=== PATIENT | female | born 1995 | race Caucasian/White ===

== ENCOUNTER 2023-07-04 03:39 | Emergency (ER) | payer MEDICAID, SELFPAY ==
[2023-07-04 03:42] VITALS: BP 137/76; PULSE 108; RESP 32; TEMP 37.1; O2SAT 94; BMI 40.4
--- OUTSIDE RECORDS SUMMARY | 2023-07-04 04:22 | XMS RPT_ITS | CCD ---
Author Name Unknown Address [id number] [place] [address] Organization [facility] Care Team Providers Care [place] [employer] Lab[employer] Name Role Phone MORRIS ALFORD DO Admitting Unavailable MORRIS ALFORD DO Primary Care Unavailable MORRIS ALFORD DO Attending Unavailable TRUDY JOVEL CNP Consulting Unavailable PROVIDER, UNKNOWN Consulting Unavailable PROVIDER, UNKNOWN Consulting Unavailable CSERNYIKGUNNER DO Admitting Unavailable CSERNYIK, GUNNER DO Primary Care Unavailable CSERNYIKGUNNER DO Attending Unavailable TRUDY JOVEL CNP Consulting Unavailable TRUDY JOVEL CNP Referring Unavailable PROVIDER, UNKNOWN Consulting Unavailable PROVIDER, UNKNOWN Consulting Unavailable Unavailable Primary Care Provider Unavailabl e ROSA M ZELAYA Referring Unavailable JANES, JOHANNE Referring Unavailable ROSA M ZELAYA Attending Unavailable RAMYA IQBAL Referring Unavailable PLOTTS, ROSA M Attending Unavailable RAMYA IQBAL Attending Unavailable RICHAR ARIAS Attending Unavailable DANNY LEO Referring Unavailable CELINA DOTY Attending Unavailable PLOTTS, ROSA M Referring Unavailable PLOTTS, ROSA M Referring Unavailable HAURYJOHANNE Attending Unavailable Allergies Allergy Classification Reported Allergen(s) Allergy Type Date of Onset Reaction(s) Facility (1 source) Amoxicillin / Clavulanate Drug Allergy [facility] (1 source) levETIRAcetam Drug Allergy [facility] (2 sources) oxyCODONE; Translations: [OXYCODONE] Drug Allergy 02-17-2023 [facility] (1 source) Phenytoin Drug Allergy [facility] (1 source) 10/06/2018 (-) MRSA SCREEN NARES Drug allergy (disorder) [facility] (9 sources) Amoxicillin / Clavulanate; Translations: [AMOXICILLIN-POT CLAVULANATE] Drug Allergy 02-17-2023 Vomiting [facility] (9 sources) levETIRAcetam; Translations: [LEVETIRACETAM] Drug Allergy 02-17-2023 Vomiting [facility] (8 sources) oxyCODONE Drug Allergy 02-17-2023 Vomiting [facility] (9 sources) Phenytoin; Translations: [PHENYTOIN] Drug Allergy 02-17-2023 Vomiting [facility] Medications Current Medications Medication Drug Class(es) Dates Sig (Normalized) Sig (Original) multivitamin (CLASSIC ) 28 mg iron- 800 mcg tab(s) (7 sources) Start: 02-17-2023 End: 02-17-2024 take 1 tablet by mouth once daily multivitamin (CLASSIC ) 28 mg iron- 800 mcg tab(s) Indications: Encounter for supervision of normal first in first trimester Take 1 tablet by mouth once daily. 90 tablet 3 02/17/2023 02/17/2024 Active Completed/Discontinued Medications Medication Drug Class(es) Dates Sig (Normalized) Sig (Original) Albuterol (7 sources) beta2-Adrenergic Agonist albuter ol sulfate (VENTOLIN INHALATION) Problems Active Problems Problem Classification Problem Date Documented Da te Episodic/Chronic Epilepsy; convulsions (9 sources) Seizure disorder; Translations: [Epilepsy, unspecified, not intractable, without status epilepticus] Onset: 02-17-2023 02-17-2023 Chronic Immunizations and screening for infectious disease (1 source) Vaccination needed; Translations: [Encounter for immunization] 07-01-2023 Episodic Other complications of (11 sources) Obesity; Translations: [Obesity complicating , unspecified trimester] Onset: 02-17-2023 02-17-2023 Chronic Other complications of (1 source) Maternal obesity complicating , childbirth and the puerperium, antepartum; Translations: [Obesity complicating , second trimester] 07-01-2023 Chronic Other complications of (1 source) Obesity complicating , unspecified trimester; Translations: [Obesity in ] Onset: 02-17-2023 Chronic Other complications of (2 sources) High risk ; Translations: [Supervision of high risk , unspecified, second trimester] Onset: 07-01-2023 07-01-2023 Episodic Other screening for suspected conditions (not mental disorders or infectious disease) (7 sources) Patient encounter status; Translations: [Encounter for screening, unspecified] Onset: 03-17-2023 03-17-2023 Episodic Residual codes; unclassified (2 sources) Finding of menstrual bleeding; Translations: [Other specified health status] 01-25-2023 Episodic Residual codes; unclassified (1 source) Gestation period, 7 weeks; Translations: [Less than 8 weeks gestation of ] 02-09-2023 Episodic Residual codes; unclassified (1 source) Gestation period, 8 weeks; Translations: [8 weeks gestation of ] 02-17-2023 Episodic Residual codes; unclassified (1 source) Gestation period, 12 weeks; Translations: [12 weeks gestation of ] 03-17-2023 Episodic Residual codes; unclassified (1 source) Gestation period, 16 weeks; Translations: [16 weeks gestation of ] 04-14-2023 Episodic Residual codes; unclassified (1 source) Gestation period, 27 weeks; Translations: [27 weeks gestation of ] 07-01-2023 Episodic Residual codes; unclassified (1 source) 16 weeks gestation of ; Translations: [16 weeks gestation of ] Onset: 05-17-2023 Episodic Residual codes; unclassified (1 source) 21 weeks gestation of ; Translations: [21 weeks gestation of ] Onset: 05-17-2023 Episodic Unclassified (1 source) No additional problems on file Past or Other Problems Problem Classification Problem Date Documented Da te Episodic/Chronic Cancer; other and unspecified primary (9 sources) History of neoplasm of pituitary gland; Translations: [Personal history of other benign neoplasm] Onset: 02-17-2023 02-17-2023 Episodic Cancer; other and unspecified primary (1 source) Personal history of other benign neoplasm; Translations: [History of benign pituitary tumor] Onset: 02-17-2023 Episodic Other and delivery including normal (6 sources) test positive; Translations: [Encounter for test, result positive] Onset: 02-09-2023 01-25-2023 Episodic Residual codes; unclassified (9 sources) Maternal history of diabetes mellitus; Translations: [Family history of diabetes mellitus] Onset: 02-17-2023 02-17-2023 Episodic Residual codes; unclassified (1 source) 8 weeks gestation of ; Translations: [8 weeks gestation of ] Onset: 03-17-2023 Episodic Residual codes; unclassified (1 source) Family history of diabetes mellitus; Translations: [Family history of diabetes mellitus in mother] Onset: 02-17-2023 Episodic Residual codes; unclassified (1 source) Other specified health status; Translations: [Date of last menstrual period (LMP) unknown] Onset: 02-09-2023 Episodic Results Test Name Value Interpretation Reference Range Facil ity Vital Signs Date Time Vital Sign Value Performing Clinician Cory ruth 07-01-2023 16:18-0500 Body weight 117.84 kg Johanne Spencer VP CARDIOVASCULAR SERVICE LINE.ARMORED MACHINE OPERATOR Work Phone: [facility] 07-01-2023 16:18-0500 Diastolic blood pressure 72 mm[Hg] Johanne Spencer VP CARDIOVASCULAR SERVICE LINE.ARMORED MACHINE OPERATOR Work Phone: [facility] 07-01-2023 16:18-0500 Systolic blood pressure 110 mm[Hg] Johanne Spencer VP CARDIOVASCULAR SERVICE LINE.ARMORED MACHINE OPERATOR Work Phone: [facility] 04-14-2023 14:29-0500 Body weight 115.21 kg Rosa M Zelaya VP CARDIOVASCULAR SERVICE LINE.CNM Work Phone: [facility] 04-14-2023 14:29-0500 Diastolic blood pressure 78 mm[Hg] Rosa M Zelaya VP CARDIOVASCULAR SERVICE LINE.CNM Work Phone: [facility] 04-14-2023 14:29-0500 Systolic blood pressure 102 mm[Hg] Rosa M Zelaya VP CARDIOVASCULAR SERVICE LINE.CNM Work Phone: [facility] 02-17-2023 11:16-0400 Body height 170.2 cm Ramya Iqbal VP CARDIOVASCULAR SERVICE LINE.ARMORED MACHINE OPERATOR Work Phone: [facility] 02-17-2023 11:16-0400 Body weight 114.31 kg Ramya Iqbal APRN.ARMORED MACHINE OPERATOR Work Phone: [facility] 02-17-2023 11:16-0400 Diastolic blood pressure 78 mm[Hg] Ramya Iqbal VP CARDIOVASCULAR SERVICE LINE.ARMORED MACHINE OPERATOR Work Phone: [facility] 02-17-2023 11:16-0400 Systolic blood pressure 114 mm[Hg] Ramya Iqbal APRN.CNP Work Phone: [facility] Encounters Encounter Date Encounter Type Care Provider Facility Start: 07-01-2023 End: 07-01-2023 ambulatory CELINA DOTY Facility:[facility] Start: 07-01-2023 End: 07-01-2023 Patient encounter procedure Johanne Spencer APRN.CNP Work Phone: OB/Gynecology Procedures Date Procedure Procedure Detail Performing Clinician Start: 07-01-2023 URINE OB DIP B/O Celina craig MD Work Phone: Start: 04-14-2023 URINE OB DIP B/O Kuldeep Zelaya APRN.CNM Work Phone: Start: 03-17-2023 Antibody screen TWIN ZELAYA Plan of Treatment Date Care Activity Detail Author Start: 07-01-2033 Urine microalbumin profile DTaP,Tdap,Td Vaccine (9 - Td or Tdap) [facility] Start: 02-17-2026 Pap Testing Pap Testing [facility] Start: 02-17-2026 Screening for malignant neoplasm of cervix Pap Testing [facility] Start: 07-08-2023 End: 10-07-2023 CBC W Auto Differential panel - Blood CBC + DIFF Lab Routine Encounter for supervision of high risk in second trimester, antepartum 27 weeks gestation of Expected: 07/08/2023 (Approximate), Expires: 10/07/2023 [facility] Work Phone: Immunizations Immunization Date Immunization Notes Care Provider Loreta alanis 07-01-2023 tetanus toxoid, redu sera diphtheria toxoid, and acellular pertussis vaccine, adsorbed Johanne Spencer APRN.ARMORED MACHINE OPERATOR Work Phone: [facility] 05-03-2007 influenza virus vacc ine, unspecified formulation Richar Arias MD Work Phone: [facility] Payers Date Payer Category Payer Medicaid [facility] MEDICAID [employer] [place] [id number] 2022-Present [phone] [address] [place] [address] Medicaid [id number] 2022 Private Health Insurance [id number] 1994 Unknown [id number] 1994 Unknown [id number] Social History Date Type Detail [facility] Work Phone: Start: 01-26-2023 End: 07-01-2023 History of Social function [facility] Start: 01-26-2023 End: 07-01-2023 Area Deprivation Index [facility] National Score (1-10 0), lower number is lower risk 47 [facility] Start: 1995 Sex Assigned At Not on file C [facility] Start: 01-28-2023 Gender identity Identifies as female gender (finding) [facility] Start: 01-28-2023 Sexual orientation Heterosexual (fin ding) [facility] Start: 01-04-2023 [facility] Start: 02-17-2023 [facility] daily [facility] Work Phone: History of tobacco use Cigarette Smoker C [facility] Work Phone: Start: 02-17-2023 Tobacco use and exposure Smokeless tobacco non-user [facility] Work Phone: Start: 02-17-2023 End: 07-01-2023 Alcohol intake Ex-drinker (finding) [facility] Goals Date Patient Goal Desired Activity /State Personal health goal Clinical Notes 01-27-2023 to 07-01-2023 Quick Notes - Johanne Spencer APRN.CNP - 07/01/2023 4:38 PM Johanne Ha APRN.CNP - 07/01/2023 4:20 PM ESTPatient InstructionsPatient InstructionsPatient Instructions Note Date & Type Note Facility 07-01-2023 Note HNO ID: [id number] Author: JOHANNE SPENCER APRN.CNP Service: ? Author Type: Nurse Practitioner Type: Progress Notes Filed: 07/01/2023 16:59 Note Text: Patient identified by name and date of . Marixa Thomas presents today for a vaccination of Tdap. Patient denies an allergy to latex: yes Patient denies a severe (life-threatening) allergy to a previous dose of Tdap, DTP, DTaP, DT or Td vaccine. Yes Patient denies history of epilepsy or neurological problems: Yes Patient is afebrile and denies being moderately or severely ill: Yes Patient denies history of Guillain-Topsham Syndrome (a severe paralytic illness): Yes Tdap Adacel injection was given without incident. See immunizations for details of immunizations administered today. VIS sheet provided: Yes Provider Johanne Spencer APRN.ARMORED MACHINE OPERATOR was present in office at time of injection. Melania Long MA [facility] 07-01-2023 Miscellaneous Notes Formattin g of this note might be different from the original. S: Marixa is a 28 year old female who presents at 27w3d for a routine visit. Feeling movement. Denies headache, visual changes, chest pain, shortness of breath, vaginal bleeding, leakage of fluid, or dysuria. Currently taking Azithromycin, prescribed by PCP for walking pneumonia. O: See flow sheet Gen: No apparent distress Abd: Gravid, nontender, S>D ASSESSMENT/PLAN: Encounter for supervision of high risk in second trimester, antepartum - ICD9: V23.9, ICD10: O09.92 (primary diagnosis) - Anatomy WNL - AFP WNL - GEST GLUC SCREEN, 1-HR, 50 GM, NON-FASTING - CBC + DIFF - SYPHILIS TOTAL W/REFLEX - TYPE + SCREEN - Repeat thyroid labs - Fluids encouraged for respiratory illness 27 weeks gestation of - ICD9: V22.2, ICD10: Z3A.27 - 1 hour GCT, CBC, and RPR next visit - Rh negative, Rhogam next visit - TDAP today - LARC form reviewed and signed. Patient declines. - Considering tubal, knows timeline for signing consent - Depression screen negative - Opioid screen negative Obesity affecting in second trimester, unspecified obesity type - ICD9: 649.13, ICD10: O99.212 - Consider 32 week growth, pre BMI 39 PTL precautions reviewed. RTO in 2 weeks for 28 week labs and OB visit. Johanne Spencer APRN.CNP documented in this encounter [facility] 07-01-2023 History of Presen t illness Narrative Patient identified by name and date of . Marixa Thomas presents today for a vaccination of Tdap. Patient denies an allergy to latex: yes Patient denies a severe (life-threatening) allergy to a previous dose of Tdap, DTP, DTaP, DT or Td vaccine. Yes Patient denies history of epilepsy or neurological problems: Yes Patient is afebrile and denies being moderately or severely ill: Yes Patient denies history of Guillain-Topsham Syndrome (a severe paralytic illness): Yes Tdap Adacel injection was given without incident. See immunizations for details of immunizations administered today. VIS sheet provided: Yes Provider Johanne Spencer APRN.ARMORED MACHINE OPERATOR was present in office at time of injection. Melania Long MA documented in this encounter [facility] 07-01-2023 Instructions Melania Long MA - 07/01/2023 4:13 PM EST SEQUENTIAL SCREENINGS The [facility] offers sequential screenings for women who are interested in screenings for chromosomal abnormalities and certain defects during a . The sequential screen combines ultrasound and blood tests to determine the risk of chromosomal abnormalities, including Down's Syndrome (Trisomy 21) and Trisomy 18, as well as open neural tube defects including spina bifida. Ultrasound examination is performed between 11 weeks and 13 weeks gestational age. Blood tests are drawn after the ultrasound and again later in the between 15 and 21 weeks gestational age. Please let your physician know if you are interested in this testing. It will require an appointment with our technicians and trades workers. This is not an ultrasound performed by a physician in our office during a routine visit. SIGNS AND SYMPTOMS OF LABOR 1. Contractions every 10 minutes or more often 2. Clear, pink, or brownish fluid (water) leaking from vagina 3. Feeling that baby is pushing down, pressure 4. Low, dull backache 5. Cramps that feel like a period 6. Cramps with or without diarrhea If you notice any of the above symptoms, contact our office at [phone] and ask to speak with a nurse. After hours, you can call doctors registry at [phone] OR call [facility] at [phone] and ask to have the doctor electronic die maker paged. If you consider this an emergency, dial 9-1-1 or go to your nearest emergency department. NEED HELP? Are you dealing with a violent or abusive relationship? Are you a victim of rape or sexual assult? Call [facility] ([place]) 24 hour Crisis Hotline: 114.929.9318 or 534-224-1386. MANUAL Your Guide to a Healthy manual is now on-line. Visit [email or web address] to download your free copy documented in this encounter [facility] 04-15-2023 Miscellaneous Notes Formattin g of this note might be different from the original. Patient notified. Still planning to wait until she comes for her next appointment. TRUDY CALDWELL RN AFP can be done until 21w6d, AFP is most accurate between 16-18 weeks. Can wait until her next appointment to have this done with thyroid labs if she chooses. Johanne Spencer APRN.ALVARO Please notify patient: Thyroid antibodies negative. Would recommend repeat thyroid labs 2nd trimester to rule out underlying thyroid condition. Ordered. AFP order was placed after patient had blood drawn yesterday. Optimal timing would be between 16 and 18 weeks. Would recommend returning for blood work of repeat thyroid labs and AFP at some point before 18 weeks at any [facility] facility. So sorry for the inconvenience. Johanne Spencer APRN.CNP documented in this encounter [facility] 04-14-2023 Miscellaneous Notes Formattin g of this note might be different from the original. S: Marixa Thomas is a 27 year old female who presents at 16.2 weeks for a routine visit. No movement to date.Denies headache, visual changes, chest pain, shortness of breath, vaginal bleeding, leakage of fluid, or dysuria. Feeling well, no complaints. O: See flow sheet Gen: No apparent distress Abd: Gravid, nontender ASSESSMENT/PLAN: 1. 16 weeks gestation of - ICD9: V22.2, ICD10: Z3A.16 (primary diagnosis) - URINE OB DIP B/O - OBSTETRIC ULTRASOUND WHI 2. Obesity in - ICD9: 649.10, ICD10: O99.210 P: 1) PTL precautions reviewed and when to call 2) RTO 4 weeks for SARI with anatomy US and AFP blood work Rosa M Zelaya APRN.CNM documented in this encounter [facility] 04-14-2023 Instructions Trudy Caldwell RN - 04/14/2023 2:21 PM EST SEQUENTIAL SCREENINGS The [facility] offers sequential screenings for women who are interested in screenings for chromosomal abnormalities and certain defects during a . The sequential screen combines ultrasound and blood tests to determine the risk of chromosomal abnormalities, including Down's Syndrome (Trisomy 21) and Trisomy 18, as well as open neural tube defects including spina bifida. Ultrasound examination is performed between 11 weeks and 13 weeks gestational age. Blood tests are drawn after the ultrasound and again later in the between 15 and 21 weeks gestational age. Please let your physician know if you are interested in this testing. It will require an appointment with our technicians and trades workers. This is not an ultrasound performed by a physician in our office during a routine visit. SIGNS AND SYMPTOMS OF LABOR 1. Contractions every 10 minutes or more often 2. Clear, pink, or brownish fluid (water) leaking from vagina 3. Feeling that baby is pushing down, pressure 4. Low, dull backache 5. Cramps that feel like a period 6. Cramps with or without diarrhea If you notice any of the above symptoms, contact our office at [phone] and ask to speak with a nurse. After hours, you can call doctors registry at [phone] OR call [facility] at [phone] and ask to have the doctor electronic die maker paged. If you consider this an emergency, dial 9--1 or go to your nearest emergency department. NEED HELP? Are you dealing with a violent or abusive relationship? Are you a victim of rape or sexual assult? Call [facility] ([place]) 24 hour Crisis Hotline: 990.713.5686 or 971-599-1177. MANUAL Your Guide to a Healthy manual is now on-line. Visit [email or web address] to download your free copy documented in this encounter [facility] 03-24-2023 Miscellaneous Notes Formattin g of this note might be different from the original. Patient notified. She will return to lab to get blood work drawn again. Sultana Garcia RN Left message for patient to call office. Crys Mayen RN Please notify patient: Elevated TSH with labs: out of range for 1st trimester. TPO antibody order placed. documented in this encounter [facility] 03-23-2023 Note HNO ID: [id number] Author: Johanne Spencer APRN.CNP Service: ? Author Type: Nurse Practitioner Type: Progress Notes Filed: 03/23/2023 5:05 PM Note Text: Elevated TSH with labs: out of range for 1st trimester.TPO antibody order placed. [facility] 03-23-2023 History of Presen t illness Narrative Elevated TSH with labs: out of range for 1st trimester.TPO antibody order placed. documented in this encounter [facility] 02-17-2023 Miscellaneous Notes Addended by: RAMYA IQBAL on: 02/17/2023 01:58 PM Modules accepted: Orders documented in this encounter [facility] 02-17-2023 Note HNO ID: [id number] Author: Ramya Iqbal APRN.CNP Service: ? Author Type: Nurse Practitioner Type: Progress Notes Filed: 02/17/2023 12:25 PM Note Text: INITIAL OB ASSESSMENT OB Provider: Ramya Iqbal APRN CNP HPI: Marixa is a 27 year old White Female here to establish Obstetrical Care. No LMP recorded (lmp unknown). Patient is . from OB Dating Form. Cycles irregular 3 menses a year was unplanned but accepted Complaints: None OB History T0 L1 SAB0 IAB0 Ectopic0 Multiple0 Live Births1 Previous history: Prior : yes x 1, failed induction History of 4th degree laceration: NA History of shoulder dystocia: No History of Hypertensive disorders including pre-eclampsia, chronic hypertension or gestational hypertension: No History of gestational diabetes: No Patient's Risk Screening for delivery: Have you had a prior parra between 20w and 36w6d?: No MEDICAL/PSYCHOSOCIAL HISTORY: History of hemorrhage or bleeding concerns: No Thyroid Disease: No History of chronic hypertension: No History of pre-existing diabetes: No No results found for: ABORHD BMI 39.47 kg/(m2) History of abnormal pap: No Prior treatment for cervical dysplasia: none. History of STDs: None Tobacco use: Yes - cigarettes does want to quit, down to 1/2 ppd Caffeine use: Yes - occasional coffee Drug use: No Alcohol use: No Multivitamin with Folic acid: No Yarsanism or heritage: No Would refuse blood transfusion if medically necessary: No Are you currently employed? 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 I don't have enough money to pay my bills: Never Within the past 12 months, have you worried that your food would run out before you had money to buy more: Never In the past 12 months, has lack of reliable transportation kept you from going to medical appointments or work, or from keeping things needed for daily living: Never In the past 12 months, have you had any concerns about having a place to live, or about the condition or quality of your housing: Never Are there any cultural or spiritual needs we should be aware of: No Depression/Anxiety Screening: denies symptoms of depression. OB Depression and Anxiety Screening- This Encounter (since 02/16/2023) Over the past 2 weeks have you felt down, depressed, or hopeless? Negative Over the past two weeks, have you felt little interest or pleasure in doing things?? Negative Feeling nervous, anxious or on edge 0-Not at all Not being able to stop or control worrying 0-Not al all Anxiety Pre-Screening Total (If >/= 3 additional questions will be reviewed) 0 Genetic Screening: Partner present: No Patient verbalized knowledge of partner family health history: Yes Do you or your partner have any personal or family history of defects not previously discussed: No Do you have history of a complicated by anomaly, genetic condition, or demise: No ACOG Recommended Screening Screening for early gestational diabetes testing: Criteria for early testing requires elevated BMI plus one other risk factor: BMI 39.47 kg/(m2) (risk factor if > than 25 or 23 in Americans) Additional risk factors: First-degree relative with diabetes - Mother She does meet ACOG criteria for early gestational DM screening. 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 Allergies As of Date: 02/17/2023 Allergen Noted Reaction AUGMENTIN [AMOXICILLIN-POT CLAVUL*02/17/2023 Vomiting DIL (more content not included)... [facility] 02-17-2023 History of Presen t illness Narrative INITIAL OB ASSESSMENT OB Provider: Ramya Iqbal APRN ARMORED MACHINE OPERATOR HPI: Marixa is a 27 year old White Female here to establish Obstetrical Care. No LMP recorded (lmp unknown). Patient is . from OB Dating Form. Cycles irregular 3 menses a year was unplanned but accepted Complaints: None OB History T0 L1 SAB0 IAB0 Ectopic0 Multiple0 Live Births1 Previous history: Prior : yes x 1, failed induction History of 4th degree laceration: NA History of shoulder dystocia: No History of Hypertensive disorders including pre-eclampsia, chronic hypertension or gestational hypertension: No History of gestational diabetes: No Patient's Risk Screening for delivery: Have you had a prior parra between 20w and 36w6d?: No MEDICAL/PSYCHOSOCIAL HISTORY: History of hemorrhage or bleeding concerns: No Thyroid Disease: No History of chronic hypertension: No History of pre-existing diabetes: No No results found for: ABORHD BMI 39.47 kg/(m^2) History of abnormal pap: No Prior treatment for cervical dysplasia: none. History of STDs: None Tobacco use: Yes - cigarettes does want to quit, down to 1/2 ppd Caffeine use: Yes - occasional coffee Drug use: No Alcohol use: No Multivitamin with Folic acid: No Yarsanism or heritage: No Would refuse blood transfusion if medically necessary: No Are you currently employed? 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 I don't have enough money to pay my bills: Never Within the past 12 months, have you worried that your food would run out before you had money to buy more: Never In the past 12 months, has lack of reliable transportation kept you from going to medical appointments or work, or from keeping things needed for daily living: Never In the past 12 months, have you had any concerns about having a place to live, or about the condition or quality of your housing: Never Are there any cultural or spiritual needs we should be aware of: No Depression/Anxiety Screening: denies symptoms of depression. OB Depression and Anxiety Screening- This Encounter (since 02/16/2023) Over the past 2 weeks have you felt down, depressed, or hopeless? Negative Over the past two weeks, have you felt little interest or pleasure in doing things? Negative Feeling nervous, anxious or on edge 0-Not at all Not being able to stop or control worrying 0-Not al all Anxiety Pre-Screening Total (If >/= 3 additional questions will be reviewed) 0 Genetic Screening: Partner present: No Patient verbalized knowledge of partner family health history: Yes Do you or your partner have any personal or family history of defects not previously discussed: No Do you have history of a complicated by anomaly, genetic condition, or demise: No ACOG Recommended Screening Screening for early gestational diabetes testing: Criteria for early testing requires elevated BMI plus one other risk factor: BMI 39.47 kg/(m^2) (risk factor if > than 25 or 23 in Americans) Additional risk factors: First-degree relative with diabetes - Mother She does meet ACOG criteria for early gestational DM screening. 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 Allergies As of Date: 02/17/2023 Allergen Noted Reaction AUGMENTIN [AMOXICILLIN-POT CLAVUL*02/17/2023 Vomiting DILANTIN [PHENYTOIN] 02/17/2023 Vomiting KEPPRA [LEVETIRACETAM] 02/17/2023 Vomiting OXYCODONE 02/17/2023 Vomiting Fully Assessed 02/17/2023 Does patient have penicillin allergy: No REVIEW OF SYSTEMS: GENERAL: Negative for: Fever or Chills HEENT: Negative for: Headache, Impaired Vision, Ringing in Ears, Nosebleeds NECK: Negative for: Swelling, Pain, Stiffness RESPIRATORY: Negative for: Cough, Shortness of breath, Wheezing GASTROINTESTINAL: Negative for: Heartburn, Constipation, Diarrhea, Blood in stool, Vomiting MUSCULOSKELETAL: Negative for: Muscle or joint pain, stiffness, Joint swelling NEUROLOGIC/PSYCHIATRIC: Negative for: Weakness, Paralysis, Numbness, Tingling, Tremor, Anxiety, Depression, Memory loss SKIN: Negative for: Rash, Itching GENITOURINARY: Negative for: vaginal itching, vaginal discharge, hematuria or dysuria PHYSICAL EXAM: BP 114/78 Ht 5' 7 (1.70m) Wt 252 lb (114.3kg) BMI 39.46 kg/(m^2). GENERAL: pleasant in no apparent distress DERMATOLOGY: Normal, without lesions, non-icteric, and non-hirsute NECK: Supple, full range of motion, no adenopathy, and thyroid normal CHEST: Normal inspiratory effort BREAST: soft, non-tender, symmetric, no dominant mass, normal nipple-areolar complex, no lymphadenopathy, and no nipple discharge ABDOMEN: soft, non-tender, and no masses NEURO: alert and oriented x3,exam grossly non-focal PELVIS: External genitalia normal without lesions. Perineal body intact. No vaginal or cervical lesions. Scant bleeding with exam. Cervix closed. No adnexal masses or tenderness. Clinical Pelvimetry: history of CS failed induction Limited OB ultrasound exam: not performed, already completed OB Risk Screening: Completed, no positive findings documented. ASSESSMENT: 27 year old at 8w2d wks gestational age PLAN: 1) Patient oriented to practice. Patient given new OB orientation folder. Discussed nutrition, folic acid supplementation, dietary guidelines, exercise, smoking, alcohol, caffeine, and drug use. Discussed gestational weight gain guidelines. Discussed routine OB labs including STD/HIV. Discussed how to access Your guide to a health and the [employer]. Discussed aneuploidy and carrier screening. Regarding aneuploidy screening, nuchal translucency/first trimester early anatomy ultrasound and NIPT were discussed. Regarding carrier screening, the myriad screen was discussed. The risks/benefits and limitations of NIPT/aneuploidy screening were reviewed including the potential for false negative and false positive results. We discussed the availability of professional-society guided carrier screening and reviewed the conditions screened and limitations of screening. The availability of genetic counseling was reviewed. Information on aneuploidy/carrier screening was provided. The patient chooses: Aneuploidy screening: chooses to proceed with NIPT (10 weeks) and Carrier screening: Declines Patient offered option of Virtual Visits. Patient unsure. May consider in future. 2) History of section: unsure of plans Obesity (BMI >30), will order early glucose screen or Hemoglobin A1C. 3) History of benign pituitary tumor removal with subsequent seizure disorder and irregular menses. Last seizure 2018. Follow up in 4 weeks or sooner prn. Ramya Iqbal APRN.CNP documented in this encounter [facility] 02-17-2023 Instructions Hermelindo Welsh Cma - 02/17/2023 10:55 AM EDT Please select the following link to access the [facility] Your Guide to a Healthy . [email or web address] documented in this encounter [facility] 02-11-2023 Miscellaneous Notes Formattin g of this note might be different from the original. Patient called and spoke with PSS. Do you want to try and call her at another time? Crys Mayen RN Attempted to call patient back- no answer Attempted to call patient several times for PNOB appointment-unable to leave voicemail-not set up. Patient has appointment with Ramya Iqbal 02/17. I can try to work her back into the schedule or Ramya can see her 02/17 documented in this encounter [facility] 01-29-2023 Miscellaneous Notes Formattin g of this note might be different from the original. Pt notified and voiced understanding with no further questions or concerns. Carmina Garcia LPN That date is ok for dating US. If she wants to be seen sooner that is fine too. She does not know LMP so unsure of gestational age Pt notified and assisted to scheduled dating ultrasound. Pt scheduled 02/09/23. Is this date ok or does pt need this sooner? If so, she stated that she could have this done at [facility]. Carmina Garcia LPN ----- Message from Celina Doty MD sent at 01/29/2023 8:19 AM EDT ----- Notify pt HCG quant rising appropriately No further blood work needed Follow up for NOB documented in this encounter [facility] 01-27-2023 Miscellaneous Notes Formattin g of this note might be different from the original. Attempted to contact patient several times. Home number rings fast busy. The Mobile number is an automated message with options to press 1 if you are over the age of 65 . Tried S.O. phone. No answer and unable to leave a message. Patient has a lab appointment tomorrow. Made an appt note to check phone number. See RR message below. The first opening for NOB with SP[facility] PERSON or CP is Mar 08. Crys Mayen RN An early congratulations! Repeat quant to be done apprrox 48 hrs after first one so we can follow trend. Schedule for NOB w/ [facility] PERSON/CP if able in next 2 weeks, if booked far out ok to do PNOB as scheduled. Dating US should be done in 1-2 weeks unless other concerns. Thanks. Danny Leo MD Patient notified. Leave open for 01/26 and 01/28 hcg quant results. She will need NOB scheduled yet too. Sultana Garcia RN HCG quants ordered This is new . She has not been seen elsewhere. Unsure of LMP - can't even tell month. H/o tumor on pituitary gland that she had removed in 2006. Ever since then menses very irregular and she can go months without menses. She is new to [facility]. Do you want to order hcg quants or does she need seen first since she has not been seen here before? Sultana Garcia RN Left message for patient to call back. Patient has PNOB scheduled for 02/11. No New OB scheduled. Please triage. If patient is transferring care, please assist in getting records. Please schedule New OB with provider documented in this encounter [facility] Diagnosis with uncertain dates, first trimester- Primary Encounter for test, result positive examination or test, positive result Date of last menstrual period (LMP) unknown 7 weeks gestation of state, incidental [facility] Diagnosis Encounter for supervision of normal first in first trimester- Primary Supervision of normal first 8 weeks gestation of state, incidental History of delivery, currently Previous delivery, unspecified as to episode of care or not applicable History of benign pituitary tumor Personal history of other endocrine, metabolic, and immunity disorders Seizure disorder (HCC) Unspecified epilepsy without mention of intractable epilepsy Obesity in Obesity complicating , childbirth, or the puerperium, unspecified as to episode of care or not applicable Family history of diabetes mellitus in mother [facility] Diagnosis Encounter for (NT) nuchal translucency scan- Primary Other specified screening Encounter for screening of mother Unspecified screening 12 weeks gestation of state, incidental [facility] Diagnosis Elevated TSH- Primary Nonspecific abnormal results of thyroid function study [facility] Diagnosis 16 weeks gestation of - Primary state, incidental Obesity in Obesity complicating , childbirth, or the puerperium, unspecified as to episode of care or not applicable [facility] Diagnosis Encounter for supervision of high risk in second trimester, antepartum- Primary 27 weeks gestation of state, incidental Need for vaccination Need for prophylactic vaccination and inoculation against unspecified single disease Low T4 Nonspecific abnormal results of thyroid function study Obesity affecting in second trimester, unspecified obesity type Obesity in Obesity complicating , childbirth, or the puerperium, unspecified as to episode of care or not applicable documented in this encounter [facility] for referral (narrative)* Diagnostic Procedure Only (Routine) - Authorized Specialty Diagnoses / Procedures Referred By Contac t Referred To Contact [facility] Diagnoses Encounter for test, result positive Date of last menstrual period (LMP) unknown Procedures OBSTETRIC ULTRASOUND WHI US PREG UTERUS AFTER 1ST TRIMEST GESTATION Danny Leo MD [address] [place] [address] [facility] [address] [place] [address] Referral ID Status Reason Start Date Expiration Date Visits Requested Visits Authorized [id number] Authorized Auto-Generat ed Referral 01/27/2023 01/27/2024 1 1 [facility] for referral (narrative)* Diagnostic Procedure Only (Routine) - Authorized Specialty Diagnoses / Procedures Referred By Contac t Referred To Contact [facility] Diagnoses 16 weeks gestation of Obesity in Procedures OBSTETRIC ULTRASOUND WHI US PREG UTERUS AFTER 1ST TRIMEST GESTATION Rosa M Zelaya APRN.CNM [address] [place] [address] [facility] [address] [place] [address] Referral ID Status Reason Start Date Expiration Date Visits Requested Visits Authorized [id number] Authorized Auto-Generat ed Referral 3 04/13/2024 1 1 edicine [facility] Summary Purpose Family History No Family History Records FoundNo Family History Records FoundNo Family History Records Found Advance Directives No Advanced Directives Records FoundNo Advanced Directives Records FoundNo Advanced Directives Records Found Health Concerns Problem Noted Date Diagnosed Date [facility] - [facility] 02/17/2023 [place] - [place] 02/17/2023 Problem Noted Date Diagnosed Date [facility] - [facility] 02/17/2023 [place] - [place] 02/17/2023 Problem Noted Date Diagnosed Date [facility] - [facility] 02/17/2023 [facility] - [place] 02/17/2023 Problem Noted Date Diagnosed Date [facility] - [facility] 02/17/2023 Education - [place] 02/17/2023 Problem Noted Date Diagnosed Date [facility] 02/17/2023 [facility] - [place] 02/17/2023 Problem Noted Date Diagnosed Date [facility] - [facility] 02/17/2023 [place] - [place] 02/17/2023 Additional Source Comments INFORMATION SOURCE (unrecogn ized section and content) DATE CREATED AUTHOR AUTHOR'S ORGANIZ ATION 09/19/2022 [facility] DATE CREATED AUTHOR AUTHOR'S ORGANIZ ATION 07/03/2023 [facility] Source Comments (unrecognize d section and content) In the event this informatio n is protected by the Federal Confidentiality of Alcohol and Drug Abuse Patient Records regulations: The Federal rules restrict any use of the information to criminally investigate or prosecute any alcohol or drug abuse patient.[facility] the event this information is protected by the Federal Confidentiality of Alcohol and Drug Abuse Patient Records regulations: The Federal rules restrict any use of the information to criminally investigate or prosecute any alcohol or drug abuse patient.[facility] the event this information is protected by the Federal Confidentiality of Alcohol and Drug Abuse Patient Records regulations: The Federal rules restrict any use of the information to criminally investigate or prosecute any alcohol or drug abuse patient.[facility] the event this information is protected by the Federal Confidentiality of Alcohol and Drug Abuse Patient Records regulations: The Federal rules restrict any use of the information to criminally investigate or prosecute any alcohol or drug abuse patient.[facility] the event this information is protected by the Federal Confidentiality of Alcohol and Drug Abuse Patient Records regulations: The Federal rules restrict any use of the information to criminally investigate or prosecute any alcohol or drug abuse patient.[facility] the event this information is protected by the Federal Confidentiality of Alcohol and Drug Abuse Patient Records regulations: The Federal rules restrict any use of the information to criminally investigate or prosecute any alcohol or drug abuse patient.[facility] the event this information is protected by the Federal Confidentiality of Alcohol and Drug Abuse Patient Records regulations: The Federal rules restrict any use of the information to criminally investigate or prosecute any alcohol or drug abuse patient.[facility] the event this information is protected by the Federal Confidentiality of Alcohol and Drug Abuse Patient Records regulations: The Federal rules restrict any use of the information to criminally investigate or prosecute any alcohol or drug abuse patient.[facility] the event this information is protected by the Federal Confidentiality of Alcohol and Drug Abuse Patient Records regulations: The Federal rules restrict any use of the information to criminally investigate or prosecute any alcohol or drug abuse patient.[facility] Center[facility] the event this information is protected by the Federal Confidentiality of Alcohol and Drug Abuse Patient Records regulations: The Federal rules restrict any use of the information to criminally investigate or prosecute any alcohol or drug abuse patient.[facility] Center[facility] the event this information is protected by the Federal Confidentiality of Alcohol and Drug Abuse Patient Records regulations: The Federal rules restrict any use of the information to criminally investigate or prosecute any alcohol or drug abuse patient.[facility] the event this information is protected by the Federal Confidentiality of Alcohol and Drug Abuse Patient Records regulations: The Federal rules restrict any use of the information to criminally investigate or prosecute any alcohol or drug abuse patient.[facility] Center[facility] the event this information is protected by the Federal Confidentiality of Alcohol and Drug Abuse Patient Records regulations: The Federal rules restrict any use of the information to criminally investigate or prosecute any alcohol or drug abuse patient.[facility] Reason for Visit (unrecogniz ed section and content) Reason Comments Future Appointment Reason Comments US Specialty Diagnoses / Procedures Referred By Contac t Referred To Contact [facility] Diagnoses Encounter for test, result positive Date of last menstrual period (LMP) unknown Procedures OBSTETRIC ULTRASOUND WHI US PREG UTERUS AFTER 1ST TRIMEST GESTATION Danny Leo MD [address] [place] [address] [facility] [address] [place] [address] Referral ID Status Reason Start Date Expiration Date V isits Requested Visits Authorized [id number] Closed Auto-Generate d Referral 01/27/2023 01/27/2024 1 1 Reason Comments Care Reason Comments Missed Appointment Specialty Diagnoses / Procedures Referred By Zunilda t Referred To Contact [facility] Diagnoses Encounter for screening of mother Procedures NUCHAL TRANSLUCENCY WHI US NUCHAL TRANSLUCENCY 1ST GESTATION Rosa M Zelaya APRN.CN [address] [place] [address] [facility] [address] [address] Referral ID Status Reason Start Date Expiration Date V isits Requested Visits Authorized [id number] Closed Auto-Generate d Referral 02/25/2023 02/25/2024 1 1 Reason Onset Date Comments Care 04/14/2023 Reason Onset Date Comments Care 07/01/2023 FOR RECORDS PERTAINING TO PATIENTS WHO ARE OR HAVE BEEN ENROLLED IN A CHEMICAL DEPENDENCY/SUBSTANCEABUSE PROGRAM, SOME INFORMATION MAY BE OMITTED. This clinical summary was aggregated from multiple sources. Caution should be exercised in using it in the provision of clinical care. This summary normalizes information from multiple sources, and as a consequence, information in this document may materially change the coding, format and clinical context of patient data. In addition, data may be omitted in some cases. CLINICAL DECISIONS SHOULD BE BASED ON THE PRIMARY CLINICAL RECORDS. [facility] [employer] [facility]. provides no warranty or guarantee of the accuracy or completeness of information in this document.
[2023-07-04] MEDS: 0.9% Normal Saline (1000mL) 1,000 ML 999 ML IV (05:38)
--- NOTE | 2023-07-04 05:40 | RAD_ITS ---
STUDY: X-RAY CHEST REASON FOR EXAM: Female, 28 years old patient with chest pain. TECHNIQUE: Single AP portable view of the chest. COMPARISON: Prior comparison studies are not available for review at this time. FINDINGS: Cardiac monitoring leads are present. The lungs are clear and expanded. There is no demonstrated pleural abnormality. Normal size heart. Normal mediastinum and hugo. Normal visualized pulmonary arteries. Normal visualized aortic arch and descending thoracic aorta. Normal visualized thoracic spine. Normal visualized ribs, clavicles, and shoulders. There is no demonstrated abnormality of the visualized soft tissue structures of the upper abdomen. RAD/Chest 1 View (Portable) IMPRESSION: No radiographic evidence of acute cardiopulmonary disease. Electronically Signed: Soco Thomas MD at 6:10 EST ,
[2023-07-04 05:42] LABS: Absolute Lymphocyte Count 0.65 X10^3/uL (0.83-4.51); Absolute Neutrophil Count 4.5 X10^3/uL (2.0-7.7); Basophil# 0.02 X10^3/uL; Basophil% 0.3 % (0-1); Hematocrit 37.8 % (37-47); Hemoglobin 13.4 g/dL (12.0-15.0); Lymphocyte # 0.65 X10^3/ul (0.83-4.51); Lymphocyte % 11.3 % (19-41); Mean Corp Hgb Conc 35.4 g/dL (32-36); Mean Corpuscular Hgb 32.5 pg (27.0-32.0); Mean Corpuscular Volume 91.7 fL (81-99); Mean Platelet Vol. 10.7 fl (6.2-12.0); Monocyte# 0.51 X10^3/uL; Monocyte% 8.8 % (0-10); NRBC Flagged by Analyzer 0 % (0-5); Neutrophil # 4.54 X10^3/uL (2.7-7.7); Neutrophil % 78.7 % (47-70); Platelet Count 172 K/mm3 (150-450); RBC Distribution Width CV 12.9 % (11.6-14.6); RBC Distribution Width SD 43.2 fl (35.1-43.9); Red Blood Count 4.12 M/mm3 (4.2-5.4); White Blood Count 5.8 K/mm3 (4.4-11.0)
[2023-07-04 05:44] VITALS: BP 124/72; PULSE 108; RESP 31; O2SAT 95
--- NOTE | 2023-07-04 05:44 | EDS_ITS ---
HPI History of Present Illness Chief Complaint: Shortness of Breath Narrative Narrative: 28-year-old female presenting with shortness of breath and chest pain. Patient states that about a week ago she started to get cough and shortness of breath. She had chills and bodyaches. She never had a fever. She states she went to an outpatient care center near [facility] and was told she has walking pneumonia . She was not tested for COVID, influenza, RSV or other viral etiologies. She states she showed up there with her and her child who were both also ill. Nobody was tested. Patient was put on a Z-Juan C. No chest x-ray was performed. Patient states she still has a cough and shortness of breath but today she was concerned because she developed chest pain. She states it is retrosternal. It is worse with deep inspiration. Patient states she is currently 28 weeks and she has had good OB follow-up so far. No vaginal complaints or urinary complaints. PFSH PFSH Home Medications albuterol sulfate 90 mcg/actuation aerosol inhaler 2 puff inhalation .q4hr prn 07/04/23 [History Last Taken Unknown] azithromycin 250 mg tablet 500 mg PO DAILY 07/04/23 [History Last Taken Unknown] vit no.133-ferrous fumarate 28 mg-folic acid 800 mcg tablet () 1 tab PO DAILY 07/04/23 [History Last Taken Unknown] Allergy/AdvReac Type Severity Reaction Status Date / Time amoxicillin trihydrate AdvReac Vomiting Verified 03/21/13 23:39 [From Augmentin] levetiracetam [From Keppra] AdvReac Vomiting Verified 03/21/13 23:39 oxycodone [Oxycodone] AdvReac Vomiting Verified 03/21/13 23:39 phenytoin sodium AdvReac Vomiting Verified 03/21/13 23:39 [From Dilantin] phenytoin sodium extended AdvReac Vomiting Verified 03/21/13 23:39 [From Dilantin] potassium clavulanate AdvReac Vomiting Verified 03/21/13 23:39 [From Augmentin] Surgical History H/O brain surgery History of tonsillectomy and adenoidectomy Previous section Social History Smoking Status: Current every day smoker tobacco type: cigarettes ROS ROS ED Constitutional Constitutional ED: Denies chills, fever(s) or sweats Eyes Eyes: Denies blurry vision or change in vision ENT ENT ED: Denies ear pain or sore throat Cardiovascular Cardiovascular: Reports chest pain; Denies palpitations or racing heartbeat Respiratory/Chest Respiratory/Chest: Reports cough and dyspnea; Denies sputum Gastrointestinal Gastrointestinal: Denies abdominal pain, constipation, diarrhea, nausea or vomiting Genitourinary Genitourinary ED: Denies dysuria, hematuria or urinary frequency Musculoskeletal Musculoskeletal: Denies arthralgias, myalgias or neck pain Integumentary Denies abscess, Abrasions or rash Neurologic Neurologic: Denies headache(s), paresthesias or weakness Psychiatric Psychiatric: Denies anxiety, depression, suicidal ideation or suicidal thoughts Endocrine Endocrinology: Denies polydipsia or polyuria EXAM Physical Exam Const Vital Signs: 07/04/23 03:42 07/04/23 05:44 07/04/23 05:44 Temperature 98.7 F Temperature Source Oral Pulse Rate 108 H 108 H Respiratory Rate 32 H 31 H Respiratory Effort Respiratory Depth Respiratory Pattern Blood Pressure 137/76 H 124/72 H Blood Pressure Mean 96 89 Pulse Ox 94 95 Oxygen Delivery Method Room Air Room Air Room Air 07/04/23 04:44 07/04/23 05:49 Temperature Temperature Source Pulse Rate 106 H Respiratory Rate 23 H Respiratory Effort Short of Breath Respiratory Depth Shallow Respiratory Pattern Tachypnea Normal Blood Pressure Blood Pressure Mean Pulse Ox Oxygen Delivery Method Room Air Positive well nourished General Appearance ED: NAD; Negative for pallor HEENT Reports moist mucous membranes Eyes PERRL and EOMs intact bilaterally Neck no lymphadenopathy Resp normal respiratory effort and clear to auscultation bilaterally Auscultation: wheezes scattered wheezes; Negative for rales or rhonchi Cardio regular rate and regular rhythm Neuro oriented x3 and CN's II-XII intact bilaterally Sensorium / Orientation: alert Motor Exam: strength 5/5 throughout Psych mental status grossly normal Skin no wounds General Skin Exam: Negative for jaundice or pallor MDM MDM MDM Narrative Medical decision making narrative: Patient presenting with chest pain shortness of breath. She currently 28 weeks . She is been on a Z-Juan C and has 1 more day of this. She states she developed chest pain today. Differential includes pneumonia, COVID, influenza, RSV, PE, ACS, dehydration, anemia, electrolyte evaluate. CBC was obtained to assess white blood cell count, hemoglobin, platelets. BMP to assess renal function, electrolytes, glucose. High-sensitivity troponin and EKG to assess for ischemia/dysrhythmia. Chest x-ray to rule out pneumonia. D-dimer will be obtained to rule out PE. EKG on my interpretation shows sinus tachycardia with a rate of 110 bpm without sign of ischemia. Chest x-ray on my interpretation shows no acute process. CBC and BMP unremarkable with exception of potassium which is slightly low at 2.9. High-sensitivity troponin is 5. Patient given oral potassium repletion. D-dimer came back elevated at 1.12 and patient did have a CTA of the chest. This shows multifocal infiltrates. This also shows some mediastinal and hilar lymphadenopathy. No evidence of PE or dissection. I suspect given the patient's history of symptoms last week as well as her family that she likely had something viral. She is not hypoxic and she feels much better after breathing treatments. I discussed the case with Dr. Gayle who is on-call for Dr. Doty to obtain follow-up as the patient does not have a PCP. We will not start her on a second antibiotic and she can take her dose of azithromycin today. She is to use her albuterol at home. She states she already quit smoking a week ago recommended that she continue to abstain from cigarettes. Return precautions are discussed. Impression: 1. Chest pain 2. Dyspnea Lab Data Attestation: I reviewed the patient's lab results. Labs: Laboratory Results - last 24 hr 07/04/23 04:45 WBC 5.8 RBC 4.12 L Hgb 13.4 Hct 37.8 MCV 91.7 MCH 32.5 H MCHC 35.4 RDW Std Deviation 43.2 RDW Coeff of Dang 12.9 Plt Count 172 MPV 10.7 Immature Gran % (Auto) 0.900 Neut % (Auto) 78.7 H Lymph % (Auto) 11.3 L [place] % (Auto) 8.8 Eos % (Auto) 0.0 Baso % (Auto) 0.3 Absolute Neuts (auto) 4.5 Absolute Lymphs (auto) 0.65 L Nucleated RBC % 0 D-Dimer Quant (PE/DVT) 1.12 H* Sodium 132 L Potassium 2.9 L Chloride 103 Carbon Dioxide 21.0 Anion Gap 8 BUN 7 Creatinine 0.55 Estim Creat Clear Calc 199.47 Est GFR (MDRD) Af Amer 168 Est GFR (MDRD) Non-Af 139 BUN/Creatinine Ratio 12.8 Glucose 94 Calcium 8.7 Troponin I High Sens 5 Radiography Diagnostic Testing: Clinical Impression(s) from Imaging Studies Chest X-Ray 07/04/23 05:40 IMPRESSION: No radiographic evidence of acute cardiopulmonary disease. Electronically Signed: Soco Thomas MD at 6:10 EST , Chest CTA 07/04/23 06:02 IMPRESSION: 1. No CTA demonstrated pulmonary embolism or arterial dissection. 2. Mediastinal and hilar lymphadenopathy. 3. Scattered multifocal airspace disease suggests multifocal pneumonia. Electronically Signed: Soco Thomas MD at 7:13 EST , Discharge Plan Triage Chief Complaint: Shortness of Breath ED Provider: Henry Montes Dx/Rx/DC Orders Instructions: ED Bronchitis, No Antibiotic (Adult) Prescriptions: No Action 28-800 mg-mcg tablet 1 tab PO DAILY Patient Comments: TAKE 1 TABLET BY MOUTH ONCE DAILY albuterol sulfate 90 mcg/actuation HFA aerosol inhaler 2 puff INHALATION .q4hr prn Patient Comments: INHALE 2 PUFFS BY MOUTH EVERY 4 HOURS NEEDED FOR SHORTNESS OF BREATH WHEEZING AND PERSISTENT COUGH azithromycin 250 mg tablet 500 mg PO DAILY Patient Comments: TAKE 2 TABLETS BY MOUTH ON DAY 1, AND THEN TAKE 1 TABLET BY MOUTH ONCE A DAY ON DAY 2 THROUGH DAY 5 Primary Care Provider: Care Physician,No Primary Referrals: Shama Doty DO [Med Staff - Active Staff] - 3-5 Days Care Physician,No Primary [Primary Care Provider] - Disposition Disposition: Home, Self Care
[2023-07-04] MEDS: Ipratropium/Albuterol Sulfate 3 ML AMPUL.NEB INHALATION (05:47)
[2023-07-04 05:49] VITALS: PULSE 106; RESP 23
[2023-07-04 06:01] LABS: D-Dimer Quantitative (DVT/PE) 1.12 FEU/ug/m (0.27-0.49)
[2023-07-04 06:02] LABS: Anion Gap 8 (5-15); BUN 7 mg/dL (7-18); BUN/Creat Ratio 12.8 RATIO (10-20); Calcium,Total 8.7 mg/dL (8.5-10.1); Chloride 103 mmol/L (98-107); Creatinine, Serum 0.55 mg/dL (0.55-1.02); EST Glomerular Filtration Rate 139 mL/min (>60); Est Glom Filt Rate - Afr Amer 168 mL/min (>60); Estimated Creatinine Clearance 199.47 ml/min; Glucose 94 mg/dL (74-106); Potassium 2.9 mmol/L (3.5-5.1); Sodium Level 132 mmol/L (136-145); Troponin-I HS 5 pg/mL (3.0-54.0)
--- NOTE | 2023-07-04 06:02 | CT_ITS ---
STUDY: CTA CHEST REASON FOR EXAM: Female, 28 years old patient with chest pain. RADIATION DOSAGE (If Supplied By Facility): CTDIvol = ( 10.29 ) mGy, DLP = ( 523.23 ) mGycm TECHNIQUE: The examination was performed with the intravenous administration of 100 mL of IV Isovue-370. Post-processing of the angiographic images was performed, with multiplanar reformation and 3D reconstruction. Individualized dose optimization techniques were used for this CT. COMPARISON: Prior comparison studies are not available for review at this time. FINDINGS: There is limited enhancement of the main pulmonary artery and right and left pulmonary arteries. There is limited enhancement of the bilateral peripheral pulmonary arteries. There is no demonstrated pulmonary embolism. Normal thoracic aorta and visualized great vessels. There is no demonstrated aortic dissection. Normal heart and pericardium. There is mediastinal lymphadenopathy with a subcarinal manuel mass measuring 5.1 x 2.2 x 4.2 cm in size. There is also paratracheal lymphadenopathy. There are several enlarged hilar nodes. Normal visualized trachea and bronchi. The lungs are well expanded. There is heterogeneous groundglass attenuation within the lingula, right middle lobe, and bilateral lower lobes. There is some interstitial thickening present throughout both lungs. Normal pleura. Normal chest wall structures. There are degenerative changes of thoracic spine. Normal visualized upper abdomen. CT/CTA Chest W/WO Contrast IMPRESSION: 1. No CTA demonstrated pulmonary embolism or arterial dissection. 2. Mediastinal and hilar lymphadenopathy. 3. Scattered multifocal airspace disease suggests multifocal pneumonia. Electronically Signed: Soco Thomas MD at 7:13 EST Reading Location ID and State: [id number] [facility] , Service support ,
[2023-07-04] MEDS: Potassium Chloride Oral Tablet 20 MEQ 40 MEQ PO (07:56)
== END 2023-07-04 08:50 | disposition home or self-care (01) ==
PROVIDERS: Emergency Provider Student in an Organized Health Care Education/Training Program; Visit Provider Student in an Organized Health Care Education/Training Program
DX: O99.891 Other specified diseases and conditions complicating pregnancy (principal); R07.9 Chest pain, unspecified; Z79.51 Long term (current) use of inhaled steroids; Z3A.28 28 weeks gestation of pregnancy; Z87.891 Personal history of nicotine dependence
CPT/HCPCS: 71045; 71275; 80048; 84484; 85025; 85379; 93005; 94640; 96360; 96361; 99285; J7030; Q9967

== ENCOUNTER 2023-09-21 09:35 | Inpatient (IN) | payer MEDICAID, SELFPAY ==
--- NOTE | 2023-09-16 13:05 | PCM.HP.BLA ---
History and Physical Date of Admission: 09/21/23 Pre-Op History and Physical ? HPI: The patient is a 28 year old female presenting for pre-operative visit. She is scheduled for and salpingectomy, for repeat cs and desires sterilization at 39 weeks on 09/21/23. Procedure discussed along with risks, benefits and complications. Other alternatives discussed for management. Consent form signed? Yes. ? ? PAST MEDICAL HISTORY PAST MEDICAL HISTORY Diagnosis Date ? 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 Seizure disorder (HCC) ? ? post pituitary tumor. Last seizure 2018 ? ? PAST SURGICAL HISTORY PAST SURGICAL HISTORY Procedure Laterality Date ? SECTION HX ? ? ? x 1 ? CRANIOT HYPOPHYSEC/EXC PITUITARY TUMOR ICRL APPR ? 2006 ? tumor benign ? TONSILLECTOMY & ADENOIDECTOMY <AGE 11 ? ? ? age 7 ? ? ? CURRENT MEDICATIONS Current Outpatient Medications Medication Sig Dispense Refill ? levothyroxine (SYNTHROID) 100 mcg tablet Take 1 tablet by mouth once daily. 30 tablet 11 ? albuterol sulfate (VENTOLIN INHALATION) ? multivitamin (CLASSIC ) 28 mg iron- 800 mcg tab(s) Take 1 tablet by mouth once daily. 90 tablet 3 ? levothyroxine (SYNTHROID) 150 mcg tablet Take 1 tablet daily before breakfast with a glass of water. Wait 30-60 minutes before consuming food, tea, coffee. (Patient not taking: Reported on 09/02/2023) 60 tablet 2 ? No current facility-administered medications for this visit. ? ? ALLERGIES: Augmentin [Amoxicillin-Pot Clavulanate], Dilantin [Phenytoin], Keppra [Levetiracetam], and Oxycodone ? PERSONAL HISTORY: SOCIAL HISTORY Social History ? Tobacco Use ? Smoking status: Every Day ? ? Packs/day: .5 ? ? Types: Cigarettes ? Smokeless tobacco: Never Vaping Use ? Vaping Use: Never used Substance Use Topics ? Alcohol use: Not Currently ? Drug use: Never ? FAMILY HISTORY: FAMILY HISTORY FAMILY HISTORY Problem Relation Age of Onset ? Diabetes Mother ? ? Kidney failure Mother ? ? Dialysis Mother ? ? Hypertension Father ? ? Hypertension Paternal Grandmother ? ? ? REVIEW OF SYMPTOMS: negative except as noted above PHYSICAL EXAMINATION: ? VITALS: Blood pressure 130/70, weight 286 lb (129.7 kg). ? GENERAL: The patient is well nourished, well hydrated in no acute distress. , The patient is oriented to time, place, and person. NECK: full range of motion ABD: gravid, non tender ? IMPRESSION: @ 37.4 weeks, desires sterilization ? PLAN: repeat cs and bilateral salpingectomy at 39 weeks ? Pt has been counseled on risks/benefits and alternatives of surgery including but not limited to anesthesia, bleeding, infection, injury to pelvic structures including bowel, bladder, ureters and vessels. Pt wishes to proceed with surgery at this time. Title 19 previously signed. Pt understands this is permanent. Risk of transfusion ? Pre op instructions reviewed. ? I have reviewed and updated past medical and surgical history, medications and allergies Kassandra Ortiz MD ?4:00 PM Routine Office Visit on 09/10/2023 Routine Office Visit on 09/10/2023 Note viewed by patient Additional Documentation Vitals: BP 130/70 Wt 286 lb (129.7 kg) LMP ?(LMP Unknown) BMI 44.79 kg/m? BSA 2.48 m? Flowsheets: [facility] PDMP [employer] SCORES, Vitals, Vital Signs Encounter Info: Billing Info, History, Allergies, Detailed Report
[2023-09-21] VITALS (15 sets, daily range): BP systolic 97–131; BP diastolic 58–77; PULSE 61–112; RESP 12–20; TEMP 36.1–37; O2SAT 94–97; BMI 45.3
--- NOTE | 2023-09-21 | FALS_PTH ---
PATIENT: JILL BOUCHER LOC: [facility] U#:[id number] AGE/SX: 28/F ROOM: WP002 RE09/21/[address]: Dr. Kassandra Stewart, MDDOB: 1995 BED: 1 DIS: 09/23/2023 SPEC #: [id number] RECD: 09/21/23 13:39 STATUS: ALICIA LAUREN #: [id number] DIONE: 09/21/23 00:[address]: Kassandra Stewart DEPT: SURGICAL PATHOLOGY RECD BY: Romeo Topete ENTERED: 09/22/23 10:13 SP TYPE: FALL TUBES OTHR DR: No Primary Care Phys Tissues: Fallopian tube Procedures: Surgery Specimen Level II HEADER OPERATION: Tubal ligation PRE-OP DIAGNOSIS: Sterilization TISSUE SUBMITTED: Fallopian tubes- stitch on right MICROSCOPIC DIAGNOSIS Bilateral fallopian tubes, salpingectomy: Bilateral fallopian tubes, no pathologic diagnosis. SJ:mr 09/23/2023 MICROSCOPIC DESCRIPTION Slides are reviewed. GROSS DESCRIPTION Received in fixative is one container labeled with the patient's name and designated bilateral fallopian tubes - right suture. The specimen consists of bilateral fallopian tubes including fimbrial ends. Right fallopian tube measures 6.0 cm in length and 0.5 cm in diameter. The left fallopian tube measures 7.5cm in length and 0.5cm in dimeter. The fallopian tubes are not identified as right or left. Sections reveal unremarkable cut surfaces. Data Modeler sections are submitted in two cassettes with each cassette containing one fallopian tube. 1- right fallopian tube, 2- left fallopian tube / SJ: 09/22/23 TC:4 CPT: 82460 x2
[2023-09-21] MEDS: Lactated Ringers 1,000 ML 999 ML IV ×3 (11:00→13:34)
[2023-09-21 11:18] LABS: Absolute Lymphocyte Count 1.63 X10^3/uL (0.83-4.51); Basophil# 0.04 X10^3/uL; Basophil% 0.5 % (0-1); Eosinophil# 0.16 X10^3/uL; Eosinophils% 2.2 % (0-5); Hematocrit 38.5 % (37-47); Hemoglobin 13.1 g/dL (12.0-15.0); Lymphocyte # 1.63 X10^3/ul (0.83-4.51); Lymphocyte % 22.2 % (19-41); Mean Corpuscular Hgb 31.4 pg (27.0-32.0); Mean Corpuscular Volume 92.3 fL (81-99); Mean Platelet Vol. 10.4 fl (6.2-12.0); Monocyte# 0.49 X10^3/uL; Monocyte% 6.7 % (0-10); NRBC Flagged by Analyzer 0 % (0-5); Neutrophil # 4.97 X10^3/uL (2.7-7.7); Neutrophil % 67.7 % (47-70); Platelet Count 223 K/mm3 (150-450); RBC Distribution Width CV 13.9 % (11.6-14.6); RBC Distribution Width SD 47.2 fl (35.1-43.9); Red Blood Count 4.17 M/mm3 (4.2-5.4); White Blood Count 7.3 K/mm3 (4.4-11.0)
[2023-09-21] MEDS: Acetaminophen 500 MG Tablet 1000 MG PO ×3 (11:21→23:52)
[2023-09-21] MEDS: Cefazolin 3 GM in 0.9% Normal Saline (100mL Bag) 100 ML IV (11:23)
[2023-09-21] MEDS: Sodium Citrate/Citric Acid 30 ML UDC PO (11:56)
[2023-09-21 11:58] LABS: Syphilis Antibodies Non-reactive
--- NOTE | 2023-09-21 13:08 | EX.PCM.OBRPT ---
Details Operative Information Date of Procedure: 09/21/23 Pre-Operative Diagnosis: repeat cs, 39 weeks, desires sterilization Post-Operative Diagnosis: same, live female infant Indications for : Repeat Elective and Desires elective sterilization Classification: Scheduled Procedure Type: low transverse (bilateral salpingectomy ) economics teacher #1: Stephen Bush Type of Anesthesia: Spinal Antibiotic Given: Ancef 3 grams IV x1 Drain: Hendrix to straight drain Estimated Blood Loss: 700 Fluids Replaced: 1000 Procedure Start Time: 12:21 Procedure Stop Time: 12:50 Time of Delivery: 12:25 Findings Description of Procedure: After informed consent was obtained the patient was taken to the operating room she was given spinal anesthesia. He was placed in the supine position. She was then prepped and draped in normal sterile fashion. Once spinal anesthesia was found to be adequate skin incision was made with a scalpel in a Pfannenstiel fashion. It was carried down to the underlying layer of the fascia. Fascia was then incised midline with scapel and extended laterally with gentle traction 2 straight Weatherford's were placed in the superior aspect of the fascial edge and the rectus muscles were dissected off bluntly.. Attention was then turned to the inferior aspect where again the fascial edge was grasped with 2 straight Ivania clamps tented up and the rectus muscle dissected off bluntly. At this time the rectus muscles were in the midline bluntly. Peritoneum was grasped with 2 Kellys and Metzenbaum used to enter the peritoneum. Gentle opposing traction was placed. Small adhesion to the anterior aspect of uterus was appreciated and this was taken down using Metzenbaum scissors. At this time the vesicouterine peritoneum was identified. Uterine incision was made in a low transverse fashion with the scalpel and then entered bluntly. Gentle opposing traction was placed to extend the uterine incision. The membranes were ruptured amniotic fluid clear. Infant's head was then brought to the uterine incision was delivered atraumatically followed by the rest 's body. At this time delayed cord clamping was performed mouth nose were suctioned. was then handed to the waiting nursery team. The placenta was then removed with gentle traction. The uterus was removed from the intra-abdominal cavity is wrapped in a moist lap. He was cleared of all clots and debris using a moist lap. Ring clamps were placed on the uterine angles. #1 Vicryl suture was used in a running locked fashion. Several multiple [id number] sutures with #1 Vicryl sutures were placed for hemostasis. Tubes and ovaries were evaluated they were normal. The tubes were grasped in an avascular area with the Callahan. LigaSure was used to coagulate and ligate along the mesosalpinx on both sides. Tubes were removed completely without complication. Uterus was then placed back in the intra-abdominal cavity. The peritoneum was grasped with Kellys. Peritoneum and muscle were reapproximated using #2 Vicryl suture in a running fashion. . The fascia was then reapproximated using #1 PDS in a running fashion. Subcutaneous layer was irrigated and evaluated and Bovie was used for any small oozing that was noted per #2-0 plain gut suture was then used to reapproximate the subcutaneous layer 4-0 Vicryl on a Shalom needle was used to reapproximate the skin in a subcutaneous fashion. Dry sterile dressing was applied. Instrument lap needle count were correct ?2. Anticipated normal postoperative course for this patient. Presentation: Positive for Vertex Amniotic Membrane Rupture Type: Artificial Amniotic Fluid Description: Clear Placental Delivery Description: Expressed Placenta Disposition: [facility] Cord Vessel Description: 3 Vessels Cord Entanglement: None Infant A Gender: Female (1 minute): 8 (5 minute): 9 Delayed Cord Clamping: Yes Complications Risks of Surgery Discussed w/Patient: Bleeding, Anesthesia Risks, Infection, Need for Future C-Sections, Permanency, Injury to surrounding structure(s) including bowel and bladder and Availability of other non-permanent control options Complications: None
[2023-09-21] MEDS: Oxytocin 15 Units/NS 250ml 15 UNITS/250 ML IV.SOLN 83 UNITS IV (13:20)
[2023-09-21] MEDS: Ketorolac 30 MG/ML Syringe IV ×2 (13:32→20:15)
[2023-09-21] MEDS: Lactated Ringers 1,000 ML 100 ML IV (16:04)
[2023-09-21] MEDS: Rho(D) Immune Globulin 300 MCG (1500 Unit) Syringe IV (17:27)
[2023-09-21] MEDS: 0.9% Saline Lock 10 ML Syringe IV ×2 (20:15→23:52)
[2023-09-22] MEDS: Enoxaparin 40 MG/0.4 ML Syringe SC ×2 (01:48→13:29)
[2023-09-22] MEDS: Ketorolac 30 MG/ML Syringe IV ×2 (01:48→08:58)
[2023-09-22 04:00] VITALS: BP 120/80; PULSE 78; RESP 16; TEMP 36.3; O2SAT 95
[2023-09-22] MEDS: Levothyroxine 100 MCG Tablet PO (05:22)
[2023-09-22] MEDS: Acetaminophen 500 MG Tablet 1000 MG PO ×4 (05:22→23:29)
[2023-09-22] MEDS: 0.9% Saline Lock 10 ML Syringe IV ×2 (05:22→08:59)
[2023-09-22 06:42] LABS: Hematocrit 36.8 % (37-47); Hemoglobin 12.2 g/dL (12.0-15.0); Mean Corp Hgb Conc 33.2 g/dL (32-36); Mean Corpuscular Hgb 31.4 pg (27.0-32.0); Mean Corpuscular Volume 94.8 fL (81-99); Platelet Count 174 K/mm3 (150-450); RBC Distribution Width CV 14.2 % (11.6-14.6); RBC Distribution Width SD 48.9 fl (35.1-43.9); Red Blood Count 3.88 M/mm3 (4.2-5.4); White Blood Count 8.5 K/mm3 (4.4-11.0)
[2023-09-22 08:49] VITALS: BP 140/97; PULSE 79; RESP 16; TEMP 36; O2SAT 99
--- NOTE | 2023-09-22 09:21 | PCM.DC.SUM ---
Providers Date of Admission: 09/21/23 Primary Care Physician: No Primary Care Phys Reason For Visit: REPEAT Diagnosis Discharge Diagnosis (1) Status post repeat low transverse section: Status: Acute Code(s): Z98.891 - History of uterine scar from previous surgery (2) Care and examination of lactating mother: Status: Acute Code(s): Z39.1 - Encounter for care and examination of lactating mother Plan POD 1 Repeat C/S with BTL Pain control Ambulating and voiding without difficulty with minimal support Desires discharge home later today Medications at Discharge Home Medications albuterol sulfate 90 mcg/actuation aerosol inhaler 2 puff inhalation .q4hr prn asthma 07/04/23 vit no.133-ferrous fumarate 28 mg-folic acid 800 mcg tablet () 1 tab PO DAILY 07/04/23 levothyroxine 100 mcg tablet 100 mcg PO DAILY hypothyroi 09/21/23 acetaminophen 500 mg tablet 1,000 mg (2 x 500 mg) PO Q6H #0 tabs 09/22/23 ibuprofen 600 mg tablet 600 mg PO Q6H #0 tabs 09/22/23 sennosides 8.6 mg-docusate sodium 50 mg tablet (Stool Softener-Stimulant Laxative) 1 - 2 tab PO DAILY #0 tabs 09/22/23 Hospital Course Operations section Procedures None Summary of Care Provided Minutes Spent on Discharge: 15 Hospital Course: Repeat section. Hospital course was uneventful. Physical Exam Narrative Dressing is dry and intact Const alert and no apparent distress General Appearance: cooperative and comfortable Exam Limitations: no limitations HEENT normocephalic Eyes General Eye: normal appearance of both eyes Neck full ROM General: normal visual inspection Chest Chest: symmetrical chest wall rise Resp normal respiratory effort and normal air movement Effort and Inspection: symmetric chest movement Auscultation: clear to auscultation bilaterally Cardio regular rate and regular rhythm GI normal to inspection, nondistended, normoactive bowel sounds Back/Spine normal ROM Extremity full ROM and no calf tenderness General Extremity: normal exam except as noted Skin no rashes or lesions noted Neuro CN's II-XII intact bilaterally Psych mental status grossly normal Weight / BMI Weight Weight: 289 lb 6 oz Body Mass Index (BMI) 45.3 ABG / Lab / Microbiology Data 09/22/23 05:50 Laboratory: Laboratory Results - last 24 hr 09/21/23 11:00: WBC 7.3, RBC 4.17 L, Hgb 13.1, Hct 38.5, MCV 92.3, MCH 31.4, MCHC 34.0, RDW Std Deviation 47.2 H, RDW Coeff of Dang 13.9, Plt Count 223, MPV 10.4, Immature Gran % (Auto) 0.700, Neut % (Auto) 67.7, Lymph % (Auto) 22.2, [place] % (Auto) 6.7, Eos % (Auto) 2.2, Baso % (Auto) 0.5, Absolute Neuts (auto) 5.0, Absolute Lymphs (auto) 1.63, Nucleated RBC % 0, Syphilis Total Ab Non-reactive, Blood Type O NEGATIVE, Antibody Screen NEGATIVE 09/21/23 15:05: Screen NEGATIVE, Baby's Blood Type O POSITIVE, Baby's GISELE NEGATIVE 09/22/23 05:50: WBC 8.5, RBC 3.88 L, Hgb 12.2, Hct 36.8 L, MCV 94.8, MCH 31.4, MCHC 33.2, RDW Std Deviation 48.9 H, RDW Coeff of Dang 14.2, Plt Count 174, MPV 11.0 D/C Instructions Discharge Diet: No restrictions May resume sexual activity in: 6-8 weeks Weight Bearing Status: Weight bearing as tolerated Lifting Restrictions: 20 lbs Call your doctor if your incision/area has: Continuous Slow Oozing, Increased Pain/ Swelling, Increased Redness, Foul Smelling Discharge and Swelling at the incision site Call your doctor if you observe: Fever of 101 or Higher, Inability to urinate, Using more than 1 pad per hour, Shortness of breath, Chest pain, Calf discomfort and Uncontrolled pain Remove Dressing in: 5 days Cleanse incision/area with: Soap & Water and Keep Dressing Clean & Dry Please Follow Up With: Rosa M Krishnan CNM When: 1 week in office for incision check or sooner if needed 6 weeks Meaningful Use Info Meaningful Use Meaningful Use Diagnoses (Choose all that apply): None applicable Ischemic Stroke Statin Dosing Therapy Reference: STATIN DOSE THERAPY REFERENCE: * Patients > 75 years receive moderate or high dose statin therapy. * Patients 75 years or YOUNGER should receive HIGH intensity statin dose unless contraindicated. You will be required to document reason for non-treatment if statin daily dose does not meet guidelines. HIGH DOSE STATIN THERAPY DAILY Atorvastatin > than or = to 40 mg Rosuvastatin > than or = to 20 mg Amlodipine + Atorvastatin > than or = to 2.5/40 mg Ezetimibe + Simvastatin 10/80 mg Simvastatin 80mg Discharge Plan Admission Admit Date/Time: 09/21/23 09:35 Primary Reason for Your Visit: Repeat C/S Attending Provider: Kassandra Ortiz Primary Care Provider: Care Physician,No Primary Discharge Orders/Prescriptions Prescriptions: New sennosides-docusate sodium [Stool Softener-Stimulant Laxat] 8.6-50 mg Tablet 1 - 2 tab PO DAILY Qty: 0 0RF acetaminophen 500 mg Tablet 1,000 mg PO Q6H Qty: 0 0RF ibuprofen 600 mg Tablet 600 mg PO Q6H Qty: 0 0RF Continued levothyroxine 100 mcg tablet 100 mcg PO DAILY 28-800 mg-mcg tablet 1 tab PO DAILY Patient Comments: TAKE 1 TABLET BY MOUTH ONCE DAILY albuterol sulfate 90 mcg/actuation HFA aerosol inhaler 2 puff INHALATION .q4hr prn Patient Comments: INHALE 2 PUFFS BY MOUTH EVERY 4 HOURS NEEDED FOR SHORTNESS OF BREATH WHEEZING AND PERSISTENT COUGH Referrals / Follow Up: Rosa M Krishnan CNM [Med Staff - Adv Practice Prof] - Care Physician,No Primary [Primary Care Provider] - Disposition Disposition (needs filled in before D/C Order can be placed): Home, Self Care
[2023-09-22 10:28] VITALS: BP 133/91
[2023-09-22] MEDS: Senna/Docusate Sodium 1 Tablet PO (11:28)
--- NOTE | 2023-09-22 13:30 | NURSING ---
Pt very upset that she is not getting to go home today d/t elevated BP. Explained to patient the providers concerns about her BP. Pt states that she has a way to take her blood pressure at home and would call the office if she had any symptoms. Pt is saying that she will just leave without a discharge order. Talked with patient about the chance that her insurance wont cover her stay if she left AMA. Told patient that I spoke with Rosa M Krishnan CNP and that she will plan to come in and see her after office hours. Talked with charge nurse, Rosetta Tenorio, about the patients situation.
--- NOTE | 2023-09-22 13:48 | PCM.PN.BLA ---
Progress Note I spoke w/ patient on the phone when she called the office because she didn't want to stay until after office hours. I reviewed with her that we do sometimes discharge c/s patients on POD#1 but 48 hrs or more is often recommended. She states she doesn't have a hisotry of HTN and the fact we told her now she isn't discharged is making her agitated and making it higher. I pointed out that at term and for the first 72 hrs there is the highest risk for preeclampsia and that her BPs were trending up before she was told she wasn't d/sera. D/w her risks of preeclampsia including stroke, organ damage, paralysis and . Recommend she stay the night for monitoring overnight and reeval in the am. Reviewed signs/symptoms of preeclampsia and return if any of those. She is anxious to get home to her 3 year old. D/w her if she elects to leave it is against my medical advice and we will be happy to see her in the office this week for close follow up or return to hospital if needed. Encouraged her to have an adult with her postop the rest of this week.
[2023-09-22 13:52] VITALS: BP 141/89; PULSE 71; RESP 16; TEMP 36.2; O2SAT 97
[2023-09-22] MEDS: Ibuprofen 600 MG Tablet PO ×2 (14:42→20:50)
[2023-09-22 17:00] VITALS: BP 119/90
--- NOTE | 2023-09-22 17:19 | PCM.PN.CNM ---
Subjective Subjective Late entry. Patient originally seen this morning and desired discharge home. After this decision was made, the patient's blood pressures began to elevate. Pressures were as followed: 140/97, 133/91, and 141/89. Patient has no history of elevated blood pressures. Discussed with nurse to discontinue the patient's discharge order and to continue monitoring blood pressures every [address] Gayle notified and agreed with plan of care. Patient initially upset and was wanting to sign out AMA. Patient spoke with Dr. Gayle via phone and discussion had over risks of elevating blood pressures after delivery. Objective Data Objective Data Vital Signs: Vital Signs Temp Pulse Resp BP Pulse Ox O2 Del Method 97.2 F L 71 16 141/89 H 97 Room Air 09/22/23 13:52 09/22/23 13:52 09/22/23 13:52 09/22/23 13:52 09/22/23 13:52 09/22/23 13:52 Oxygen Delivery Method Room Air Weight: 289 lb 6 oz Body Mass Index (BMI) 45.3 Intake & Output: Intake and Output for Last 24 Hours 09/20/23 09/21/23 09/22/23 23:59 23:59 23:59 Intake Total 3343.25 / 3343.25 1000 / 1000 Output Total 1100 / 1100 250 / 250 Balance 2243.25 / 2243.25 750 / 750 Lab / Micro Data 09/22/23 05:50 Labs: Laboratory Results - last 24 hr 09/22/23 05:50: WBC 8.5, RBC 3.88 L, Hgb 12.2, Hct 36.8 L, MCV 94.8, MCH 31.4, MCHC 33.2, RDW Std Deviation 48.9 H, RDW Coeff of Dang 14.2, Plt Count 174, MPV 11.0 Assessment & Plan (1) Smoker: COMMENT: 10 a day (2) Thyroid disorder: (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 Gayle aware of plan
[2023-09-22 20:00] VITALS: BP 132/97; PULSE 88; RESP 16; TEMP 36.3; O2SAT 98
[2023-09-23 01:50] VITALS: BP 114/79; PULSE 81; RESP 16; TEMP 36.3; O2SAT 98
[2023-09-23] MEDS: Enoxaparin 40 MG/0.4 ML Syringe SC (01:51)
[2023-09-23] MEDS: Ibuprofen 600 MG Tablet PO ×2 (03:28→09:50)
[2023-09-23] MEDS: Acetaminophen 500 MG Tablet 1000 MG PO (05:10)
[2023-09-23] MEDS: Levothyroxine 100 MCG Tablet PO (05:11)
[2023-09-23 07:46] VITALS: BP 134/86; PULSE 81; RESP 17; TEMP 36.3; O2SAT 100
--- NOTE | 2023-09-23 08:17 | PCM.PN.OB ---
Subjective Subjective Denies complaints Objective Data Objective Data Vital Signs: Vital Signs Temp Pulse Resp BP Pulse Ox O2 Del Method 97.4 F L 81 17 134/86 H 100 Room Air 09/23/23 07:46 09/23/23 07:46 09/23/23 07:46 09/23/23 07:46 09/23/23 07:46 09/23/23 07:46 Oxygen Delivery Method Room Air Weight: 289 lb 6 oz Body Mass Index (BMI) 45.3 Intake & Output: Intake and Output for Last 24 Hours 09/21/23 09/22/23 09/23/23 23:59 23:59 23:59 Intake Total 3343.25 / 3343.25 1000 / 1000 Output Total 1100 / 1100 250 / 250 Balance 2243.25 / 2243.25 750 / 750 Lab / Micro Data 09/22/23 05:50 Physical Exam Const alert, oriented x3 and no apparent distress HEENT normocephalic GI soft to palpation, non-tender and non-distended GI Narrative: fundus firm, mid & below umbilicus Incision - bandage c/d/i scant erythema c/w drape irritation Extremity normal to inspection and no calf tenderness Assessment & Plan (1) Elevated blood pressure reading without diagnosis of hypertension: COMMENT: POD#2 (2) Status post repeat low transverse section: PLAN: Plan Patient monitored overnight for elevated BP's. BP's normal to mildly elevated. Will discharge to home today. Reviewed preE & BP precautions. Patient will monitor her BP at home & follow up Wednesday for an in office BP check. D/c to home later this AM after 1 more BP check
[2023-09-23] MEDS: Senna/Docusate Sodium 1 Tablet PO (09:50)
[2023-09-23 10:08] VITALS: BP 135/101; PULSE 92; RESP 16; O2SAT 98
[2023-09-23 10:16] VITALS: BP 132/92
[2023-09-23 10:36] VITALS: RESP 16
== END 2023-09-23 10:40 | disposition home or self-care (01) | DRG 539 ==
PROVIDERS: Admitting Provider Obstetrics & Gynecology; Referring Provider Obstetrics & Gynecology; Visit Provider Obstetrics & Gynecology
PROC: 10D00Z1 Extraction of Products of Conception, Low, Open Approach (ICD-10-PCS; CPT 59514; principal; 2023-09-21 11:45)
DX: O34.211 Maternal care for low transverse scar from previous cesarean delivery (principal); E07.9 Disorder of thyroid, unspecified; E66.01 Morbid (severe) obesity due to excess calories; F17.210 Nicotine dependence, cigarettes, uncomplicated; O99.214 Obesity complicating childbirth; O99.334 Smoking (tobacco) complicating childbirth; Z30.2 Encounter for sterilization; Z37.0 Single live birth; O99.893 Other specified diseases and conditions complicating puerperium; R03.0 Elevated blood-pressure reading, without diagnosis of hypertension; O99.284 Endocrine, nutritional and metabolic diseases complicating childbirth; Z3A.39 39 weeks gestation of pregnancy; Z79.899 Other long term (current) drug therapy
CPT/HCPCS: 59025; 59050; 85025; 85027; 85461; 86780; 86850; 86900; 86901; 88302; 90384; 99221; J7120; A4216; G0378; J2405; J2790; J2791